=== PATIENT | female | born 2000 | race Caucasian/White ===

== ENCOUNTER → 2020-01-12 17:15 | Outpatient (BNVA) | payer BC, SELFPAY | PROVIDERS: Family Provider Family Medicine; PCP Family Medicine; Visit Provider Nurse Practitioner Family | DX: R06.02 Shortness of breath (principal); R50.9 Fever, unspecified; R06.89 Other abnormalities of breathing | CPT/HCPCS: 71046; 87400 ==

== ENCOUNTER → 2020-01-13 14:19 | Outpatient (BNVA) | payer BC, SELFPAY | PROVIDERS: Family Provider Family Medicine; PCP Family Medicine; Visit Provider Nurse Practitioner Family | DX: R50.9 Fever, unspecified (principal); R06.02 Shortness of breath; R05 Cough; R06.89 Other abnormalities of breathing | CPT/HCPCS: 87635 ==